=== PATIENT | male | born 1965 | race Caucasian/White ===

== ENCOUNTER → 2023-04-13 | Outpatient (CLI) | payer OTHER ==
[~2023-04-13] MED LIST: CETI10TA57 PO; FLUOCINOLONE TP; FLUTICASONE PROP NASAL; MINO50TA PO; OMEP20CA12 PO; TRAZ150T79 PO
== END | disposition home or self-care (01) ==
LOC: RAH 15:20
PROVIDERS: ATTEND Internal Medicine
DX: S89.92XA Unspecified injury of left lower leg, initial encounter (principal); M17.12 Unilateral primary osteoarthritis, left knee; M54.59 Other low back pain; M79.89 Other specified soft tissue disorders; M47.817 Spondylosis without myelopathy or radiculopathy, lumbosacral region; X58.XXXA Exposure to other specified factors, initial encounter; Y93.89 Activity, other specified; Y92.89 Other specified places as the place of occurrence of the external cause; Y99.8 Other external cause status
CPT/HCPCS: 72100; 73562

== ENCOUNTER → 2023-10-02 | Outpatient (CLI) | payer OTHER | END | disposition home or self-care (01) | LOC: RAH 10:41 | PROVIDERS: ATTEND Nurse Practitioner | DX: M75.102 Unspecified rotator cuff tear or rupture of left shoulder, not specified as traumatic (principal); R60.0 Localized edema; M19.012 Primary osteoarthritis, left shoulder | CPT/HCPCS: 73221 ==